=== PATIENT | female | born 1955 | race Caucasian/White ===

== ENCOUNTER → 2017-02-16 | Outpatient (CLI) | payer OTHER | LOC: MAMMO 14:31 | DX: Z12.31 Encounter for screening mammogram for malignant neoplasm of breast (principal) | CPT/HCPCS: G0202 ==

== ENCOUNTER → 2018-03-01 | Outpatient (CLI) | payer BC | LOC: MAMMO 08:30 | DX: Z12.31 Encounter for screening mammogram for malignant neoplasm of breast (principal) ==

== ENCOUNTER 2018-09-13 09:00 | Outpatient (RCR) | payer BC | END 2018-09-13 09:30 | disposition still patient (30) | LOC: PT 09:00 | DX: M54.12 Radiculopathy, cervical region (principal) ==

== ENCOUNTER → 2019-03-16 | Outpatient (CLI) | payer BC | LOC: MAMMO 03-08 09:15 | DX: Z12.31 Encounter for screening mammogram for malignant neoplasm of breast (principal) ==

== ENCOUNTER 2024-01-24 13:00 | Outpatient (RCR) | payer MEDICARE | END 2024-02-02 | LOC: PT | DX: M48.02 Spinal stenosis, cervical region (principal) ==

== ENCOUNTER 2024-02-10 08:00 | Outpatient (RCR) | payer MEDICARE | END 2024-03-03 | disposition home or self-care (01) | LOC: PT | DX: M48.02 Spinal stenosis, cervical region (principal) ==